=== PATIENT | male | born 1970 | race Caucasian/White ===

== ENCOUNTER 2017-04-14 06:53 | Emergency (ER) | payer MEDICAID ==
[2017-04-14 10:35] VITALS: BP 125/68
[2017-04-14] MEDS ORDERED: ALBUTEROL SULFATE HFA 90 MCG/PUFF 8 GM INHALER IH ONE ×2 (11:00→11:14)
[2017-04-14] MEDS ORDERED: PredniSONE 20 MG TABLET PO ONE (11:00)
[2017-04-14] MEDS ORDERED: PredniSONE 20 MG TABLET ONE (11:01)
== END 2017-04-14 11:33 | disposition home or self-care (01) ==
LOC: EMS 06:55
DX: J44.9 Chronic obstructive pulmonary disease, unspecified (principal); J40 Bronchitis, not specified as acute or chronic
CPT/HCPCS: 71010; 94640; 99283; J7512; J3535